=== PATIENT | female | born 1940 | race Caucasian/White ===

== ENCOUNTER 2017-06-13 12:52 | Emergency (ER) | payer MEDICARE, OTHER ==
[~2017-06-13] VITALS: Ht 149.9 cm; Wt 68.0 kg
[~2017-06-13 12:52] MED LIST: CLOPIDOGREL75 MG PO; DIOVAN80 MG PO; FAMOTIDINE20 M1 PO; HYDROCHLOROT12.5 MG PO; KLOR-CON M2020 MEQ PO; METOPROL TAR25 MG PO; PRAVASTATIN80 MG PO; PROTONIX40 M2 PO; ZOLPIDEM5 MG PO
[2017-06-13 15:09] VITALS: BP 155/84
== END 2017-06-13 15:16 | disposition home or self-care (01) ==
LOC: ED 12:52
DX: S60.221A Contusion of right hand, initial encounter (principal); S90.02XA Contusion of left ankle, initial encounter; S09.90XA Unspecified injury of head, initial encounter; W10.8XXA Fall (on) (from) other stairs and steps, initial encounter; Y93.9 Activity, unspecified; Y92.009 Unspecified place in unspecified non-institutional (private) residence as the place of occurrence of the external cause; I10 Essential (primary) hypertension; I25.2 Old myocardial infarction; Z72.89 Other problems related to lifestyle

== ENCOUNTER 2017-08-26 10:40 | Emergency (ER) | payer MEDICARE, OTHER ==
[~2017-08-26] VITALS: Ht 149.9 cm; Wt 68.1 kg
[2017-08-26] MEDS ORDERED: OCEAN NASAL0.65 % (11:58)
[2017-08-26] MEDS ORDERED: AFRIN 12 HOUR0.05 % (11:58)
[2017-08-26 12:09] VITALS: BP 156/89
== END 2017-08-26 12:09 | disposition home or self-care (01) ==
LOC: ED 10:40
PROC: 0W3Q7ZZ Control Bleeding in Respiratory Tract, Via Natural or Artificial Opening (ICD-10-PCS; principal; 2017-08-26)
DX: R04.0 Epistaxis (principal); I11.0 Hypertensive heart disease with heart failure; I50.9 Heart failure, unspecified; E78.00 Pure hypercholesterolemia, unspecified; J44.9 Chronic obstructive pulmonary disease, unspecified; I25.2 Old myocardial infarction

== ENCOUNTER 2019-07-11 09:58 | Emergency (ER) | payer MEDICARE, OTHER ==
[~2019-07-11] VITALS: Ht 149.9 cm; Wt 64.0 kg
[~2019-07-11 09:58] MED LIST changes: +AFRIN 12 HOUR0.05 %; +OCEAN NASAL0.65 %
[2019-07-11 11:49] LABS: HEMATOCRIT 40.5 % (37.0-47.0); HEMOGLOBIN 13.1 g/dl (12.0-16.0); IMMATURE GRANULOCYTES 0.3 % (0.0-5.0); MEAN CELL VOLUME 98.8 fL CALC (80.0-100.0); MEAN CORPUSCULAR HGB CONC 32.3 g/L CALC (32.0-36.0); NEUT# 3.53 thou/uL (2.00-7.15); RED BLOOD COUNT 4.1 mill/uL (4.20-5.60); RED CELL DISTRI WIDTH 13.3 % (11.5-15.5)
[2019-07-11 11:56] LABS: ALBUMIN 3.7 g/dL (3.2-5.0); ALKALINE PHOSPHATASE 87 u/l (38-126); ANION GAP 14 (6-22 (CALC)); BUN 16 mg/dL (8-23); BUN/CREATININE RATIO 16 (12-20 (CALC)); CARBON DIOXIDE 20 mmol/l (22-30); CHLORIDE 107 mmol/l (95-108); GFR 54 ML/MIN (>=60 (CALC)); GFR FOR AFR.AMER. > 60 ML/MIN (>=60 (CALC)); POTASSIUM 4.3 mmol/l (3.5-5.1); SGOT/AST 26 u/l (9-36); SODIUM 137 mmol/l (137-146); TOTAL PROTEIN 6.8 g/dL (6.3-8.2)
[2019-07-11 11:57] LABS: BILIRUBIN, TOTAL 0.9 mg/dL (0.0-1.4)
[2019-07-11] MEDS ORDERED: METOPROL TAR25 MG PO (12:20)
[2019-07-11] MEDS ORDERED: ZYLOPRIM100 MG PO (12:20)
[2019-07-11] MEDS ORDERED: PROTONIX40 M2 PO (12:21)
[2019-07-11] MEDS ORDERED: DIOVAN160 MG PO (12:21)
[2019-07-11] MEDS ORDERED: CLOPIDOGREL75 MG PO (12:22)
[2019-07-11] MEDS ORDERED: ATORVASTATIN CA40 MG PO (12:23)
[2019-07-11 13:31] LABS: URINE BILIRUBIN - DIPSTICK NEGATIVE (NEGATIVE); URINE BLOOD DIPSTICK TRACE-INTACT (NEGATIVE); URINE CLARITY CLEAR; URINE COLOR YELLOW; URINE GLUCOSE - DIPSTICK NEGATIVE (NEGATIVE); URINE KETONE NEGATIVE (NEGATIVE); URINE LEUK ESTERASE TRACE (Negative); URINE NITRITE - DIPSTICK NEGATIVE (Negative); URINE PROTEIN - DIPSTICK NEGATIVE (NEG-TRACE); URINE SPECIFIC GRAVITY <=1.005; URINE UROBILINOGEN - DIPSTICK 0.2 E.U./dL (0.2)
[2019-07-11 13:59] VITALS: BP 179/72
== END 2019-07-11 13:59 | disposition home or self-care (01) ==
LOC: ED 09:58 → ED-I 12:56 → ED 13:59
PROVIDERS: Family Medicine
DX: R55 Syncope and collapse (principal); I11.0 Hypertensive heart disease with heart failure; I50.9 Heart failure, unspecified; J43.9 Emphysema, unspecified; I25.2 Old myocardial infarction; Z86.73 Personal history of transient ischemic attack (TIA), and cerebral infarction without residual deficits